=== PATIENT | female | born 1980 | race Caucasian/White ===

== ENCOUNTER 2023-08-17 14:43 | Emergency (ER) | payer OTHER, SELFPAY ==
[2023-08-17 14:46] VITALS: BP 131/92; PULSE 87; RESP 18; TEMP 36.6; O2SAT 97
[2023-08-17] MEDS: Ketorolac 10 MG TAB PO (16:24)
--- NOTE | 2023-08-17 16:59 | NUR.NOTE ---
Nursing Note: pt eloped after getting tordol and before getting imagine.
--- NOTE | 2023-08-17 17:00 | ED.GENADUL_ITS ---
Discharge Plan Disposition Patient Disposition: Eloped Discharge Details Clinical Impression: Contusion of multiple sites Primary Care Provider: Anuradha Marcial ED Provider: Hernan Mejía Home Meds and New Rx's Prescriptions: No Action ropinirole 1 mg Tablet 1 mg PO DAILY albuterol 90 mcg/actuation Aerosol 90 mcg INHALATION PRN PRN hydroxyzine HCl 10 mg Tablet 10 mg PO PRN PRN desvenlafaxine succinate 100 mg Tablet Extended Release 24 Hr 100 mg PO DAILY Discharge Data Discharge Date/Time-TO BE ENTERED AT DEPARTURE: 08/17/23 16:56 Medical Decision Making Patient presenting to the emergency department for chief complaint of left shoulder and right hip pain. Patient states 1 month ago while moving she suffered a fall injuring her shoulder and hip. Patient states she has been using [id number] pain medication since but is still having discomfort. Patient states that she has not been evaluated since initial injury. Physical exam shows full range of motion of shoulder and hip but there is tenderness to palpation of the shoulder and hip which is nonfocal. Range of motion does seem to exacerbate pain but no other obvious findings are noted on exam. Given traumatic injury will perform radiological imaging. Pending results will give patient ketorolac. Pending patient going to radiological imaging patient eloped emergency department for unknown reasons. After exam I do not expect any life threatening causation to her pain and discomfort and she was recommended to follow-up with orthopedics given I had already informed her of high suspicion of negative imaging given that injury occurred 1 month ago and that she had full range of motion and was weightbearing and ambulatory. HPI General Mode of arrival: ambulatory . Date/Time Provider Initiated Documentation: 08/17/23 15:20 . Limitations to Documentation: no limitations . Information obtained by: patient and RN notes reviewed . History of Present Illness 43 year old F presents to the emergency department with the chief complaint of Left shoulder injury, right hip injury, described as moderate, Quality is described as aching, Patient reports no radiation. Patient started experiencing this month(s) (1) and it has been constant. No relieving factors improve symptom(s), Movement worsens symptoms . Patient notes no other symptoms.. Patient did receive the following treatments prior to arrival, NSAID Related Data Home Medications Medication Instructions Recorded Confirmed albuterol 90 mcg/actuation aerosol 90 mcg inhalation PRN PRN 08/17/23 08/17/23 inhaler desvenlafaxine succinate 100 mg 100 mg PO DAILY 08/17/23 08/17/23 tablet,extended release 24 hr hydroxyzine HCl 10 mg tablet 10 mg PO PRN PRN 08/17/23 08/17/23 ropinirole 1 mg tablet 1 mg PO DAILY 08/17/23 08/17/23 Allergies Allergy/AdvReac Type Severity Reaction Status Date / Time aspirin Allergy Anaphylaxis Unverified 08/17/23 14:51 Penicillins Allergy Cardiac Unverified 08/17/23 14:51 Dysrhythmia Sulfa (Sulfonamide AdvReac Diarrhea Unverified 08/17/23 14:51 Antibiotics) General Stated Complaint: Orthopedic NICKI: 4 Review of Systems Constitutional Constitutional: Denies chills and Denies fever(s) Cardiovascular Cardiovascular: Denies chest pain and Denies dyspnea Respiratory Respiratory: Denies dyspnea Gastrointestinal Gastrointestinal: Denies abdominal pain Musculoskeletal Musculoskeletal: Reports as per HPI, Reports arthralgias, Denies numbness and Denies tingling Integumentary/Breasts Skin/Breast: Denies unusual bruising and Denies wounds Neurologic Neurologic: Denies numbness and Denies tingling PFSH All Active Problems (Updated 08/17/23 @ 20:03 by Hernan Mejía NP) Contusion of multiple sites (Acute) Surgical History (Updated 08/17/23 @ 19:59 by Hernan Mejía NP) H/O cleft lip repair History of hysterectomy Social History Smoking/Tobacco Use Status: Current every day Tobacco Type: cigarettes Smoking risk assessment performed?: Yes Alcohol Intake: current Alcohol Intake frequency: holidays/special occasions only Drug use: Occasionally Substance use type: marijuana Housing: apartment Do you feel safe at home: Yes Do you feel safe in your relationship?: Yes Exam Const General: cooperative, no acute distress and not ill appearing Orientation: alert, awake and oriented x3 HENMT Mouth: moist mucous membranes Resp Effort & Inspection: normal respiratory effort, able to speak in complete sentences and no respiratory distress Auscultation: clear to auscultation bilaterally Cardio Rate: regular rate Rhythm: regular rhythm Heart Sounds: S1 normal and S2 normal Skin General skin exam: no rashes or lesions noted Neuro General: patient alert, patient awake, patient oriented x3, moves all extremities and no focal motor deficits Sensory Exam: no sensory deficits noted Extrem General: normal exam except as noted Left upper extremity: shoulder/upper arm Details: tenderness Location: of the clavicle and of the proximal humerus, axillary nerve sensory function normal and normal ROM; no swelling and no deformity Right lower extremity: hip/thigh Details: tenderness Location: of the hip and normal ROM; no crepitus and no deformity Course Vital Signs Vital signs: Vital Signs Temperature 36.6 C 08/17/23 14:46 Pulse 87 08/17/23 14:46 Respiratory Rate 18 08/17/23 14:46 Blood Pressure 131/92 H 08/17/23 14:46 Pulse Oximetry 97 08/17/23 14:46 Temperature 36.6 C 08/17/23 14:46 Temperature Source Skin 08/17/23 14:46 Pulse 87 08/17/23 14:46 Respiratory Rate 18 08/17/23 14:46 Respiratory Effort Normal, Non-Labored 08/17/23 15:24 Blood Pressure 131/92 H 08/17/23 14:46 Blood Pressure Position Sitting 08/17/23 14:46 Pulse Oximetry 97 08/17/23 14:46 Oxygen Delivery Method Room Air 08/17/23 14:46 Oxygen Flow Rate 0 08/17/23 14:46 Pain Level 7 08/17/23 14:46
== END 2023-08-17 16:56 | disposition left against medical advice (07) ==
LOC: ER 17:04
PROVIDERS: Emergency Provider Nurse Practitioner Family; PCP Nurse Practitioner Family
DX: S40.012A Contusion of left shoulder, initial encounter (principal); S70.01XA Contusion of right hip, initial encounter; X58.XXXA Exposure to other specified factors, initial encounter
CPT/HCPCS: 99283